=== PATIENT | female | born 1985 | race African-American/Black ===

== ENCOUNTER 2016-12-31 07:12 | Inpatient (IN) | payer OTHER ==
--- NOTE | 2016-12-22 09:39 | HPE ---
DATE OF SCHEDULED ADMISSION: 12/31/2016 She is booked for elective repeat section on 12/31/2016. This lady is a 31-year-old, 2, para 1, last menstrual period (LMP) 04/05/2016, estimated date of confinement (EDC) 01/10/2017. Her final date was 01/07/2017. She is booked at 39 weeks for a repeat section, which is 12/31/2016. Her risk factors are that she has had a prior section in 2007. She has a two-vessel cord at the present time, small for gestational age , having gone from the 26th percentile to the 18th percentile, and is being monitored for growth. She initially had a low-lying placenta over the uterine incision; however, that has resolved. PAST HISTORY: In 2007, at 41 weeks, section for breech presentation. ALLERGIES: She has no known allergies. She is taking no medications at the present time. PAST SURGICAL HISTORY: section and she has had abdominoplasty in August 2015. It is giving her some issues in regards to pain from stretching. HER LAB WORK: Is B positive, HIV negative, hepatitis negative, RPR negative. Rubella immune. Varicella immune. Pap normal. Urine negative. Gonorrhea and chlamydia are negative. 1-hour glucose early was 78. 28-week GTT was 109, and GBS is pending. Her blood pressure is 128/70, respirations are 18, pulse 78. Her symphysis fundus height is 35-36 cm. heart rate is 140, vertex presenting. The rest of the examination is unremarkable. She is normocephalic, atraumatic. Neck full range of motions. Pupils equal and reactive to light. Distal pulses are symmetric. No evidence of deep venous thrombosis (DVT), pulmonary embolism (PE), or superficial phlebitis. What is interesting is she has pedal edema from her ankles to her knees, pitting in all places. 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 Lungs are clear bilaterally to bases. No wheezes or rhonchi. No costovertebral angle (CVA) tenderness. Nontender abdomen. She has multiple scars from her abdominoplasty, section, periumbilical area, and all are keloided in. Symphysis fundus height is appropriate, and four quadrant bowel sounds are noted. She has no rashes, lesions, or pruritus. She does have some pedal edema, and she has dependent edema over the incisional scar. No arthralgia or myalgia. No complaints of cough, wheezes, shortness of breath, or dyspnea on exertion. No allergies. No chest pain. No bleeding. Neurologically complete. No incontinence, urgency, or frequency. No nausea, vomiting, diarrhea, or constipation. No diabetic issues. GYNECOLOGIC HISTORY: Is unremarkable. MEDICAL HISTORY: Is negative. SURGICAL HISTORY: Is section, abdominoplasty. FAMILY HISTORY: Is noncontributory. She does not smoke, drink, abuse drugs. She is , and she is an active duty soldier. We discussed the risks and benefits of repeat section, including hemorrhage, infection, perforation, , reoperation, remote blood transfusion, remote hysterectomy, remote laceration, remote intensive care admission for baby, especially with a baby who is a nsszy-ali-dxscxzqjfjz-age infant. Patient expressed understanding of risks and benefits, signed and witnessed the consent form. We are booked tentatively for 12/31/2016. This may be moved depending on growth scans. Presently, she has gone from 26th percentile to the 18th percentile and she has a followup repeat growth scan in 2 weeks' time. If the S/D ratio reverses or there is a change in the estimated weight being at the 3rd percentile or below, we will move up the date of the section. Patient expressed understanding of all these issues.
[~2016-12-31] VITALS: Ht 170.2 cm; Wt 103.7 kg
[~2016-12-31 07:12] MED LIST: PRE-TAB3 PO
[2016-12-31] MEDS ORDERED: AZITHROMYCIN INJ 500 MG, VIAL MATE ADAPTER 1 EACH in D5W 250 ML IV SCH (08:15)
[2016-12-31] MEDS ORDERED: LR 1,000 ML IV ONE (08:15)
[2016-12-31] MEDS ORDERED: BUPIVACAINE HCL 0.25% 30 ML VIAL SC ONE (08:15)
[2016-12-31] MEDS ORDERED: ACETAMINOPHEN 650 MG SUPP PR ONE (08:15)
[2016-12-31] MEDS ORDERED: MEASLES,MUMPS,RUBELLA VACCINE INJ (MMR-II) (90707) SC SCH (09:00)
[2016-12-31] MEDS ORDERED: RHOGAM 300 MCG (1500 IU) INJ (J2790) IM SCH (09:00)
[2016-12-31] MEDS: PRENATAL VITAMINS CHEWABLE TABLET PO SCH (09:00)
[2016-12-31] MEDS: DOCUSATE SODIUM 100 MG CAP PO SCH ×2 (09:00→21:00)
[2016-12-31] MEDS ORDERED: LR 1,000 ML IV SCH ×2 (09:15→12:00)
[2016-12-31] MEDS ORDERED: BICITRA 30ML SOLN UDC PO ONE (09:15)
[2016-12-31 09:30] LABS: MEAN CORPUSCULAR HEMOGLOBIN 27.9 pg (27.0-33.0); MEAN CORPUSCULAR HGB CONC 32.9 g/dl (32.0-36.5); MEAN CORPUSCULAR VOLUME 84.8 fl (80.0-96.0); RED CELL DISTRIBUTION WIDTH 13.8 % (11.5-14.5); WHITE BLOOD COUNT 7.4 K/mm3 (4.0-10.0)
[2016-12-31] MEDS ORDERED: OXYTOCIN INJ 10 UNITS/ML VIAL (J2590) As Ordered ONE (10:07)
[2016-12-31] MEDS ORDERED: MORPHINE PRES-FREE INJ 10 MG/10 ML VIAL (J2274) As Ordered ONE (10:07)
[2016-12-31] MEDS ORDERED: ONDANSETRON 4MG/2ML VIAL (J2405) IV PRN ×2 (10:18→12:00)
[2016-12-31] MEDS ORDERED: METOCLOPRAMIDE INJ 10MG/2ML VIAL (J2765) IV PRN ×3 (10:18→12:00)
[2016-12-31] MEDS ORDERED: NALOXONE INJ 0.4 MG/1 ML VIAL (J2310) IV PRN ×2 (10:18)
[2016-12-31] MEDS ORDERED: NALBUPHINE HCL 10 MG/ML AMP (J2300) IV PRN (10:18)
[2016-12-31] MEDS ORDERED: PHENYLephrine HCL 500 MCG/5 ML (100MCG/ML) SYRINGE (J2370) As Ordered ONE (10:33)
[2016-12-31] MEDS ORDERED: ePHEDrine SULFATE 25 MG/5 ML(5MG/ML) SYRINGE As Ordered ONE (10:33)
[2016-12-31] MEDS ORDERED: ONDANSETRON 4MG/2ML VIAL (J2405) As Ordered ONE (10:51)
[2016-12-31] MEDS ORDERED: KETOROLAC 60 MG/2 ML VIAL (J1885) As Ordered ONE (10:51)
[2016-12-31] MEDS ORDERED: OXYTOCIN DRIP 30 UNITS in APPROPRIATE DILUENT 1 EA IV SCH (12:00)
[2016-12-31] MEDS ORDERED: fentaNYL 100 MCG/2 ML INJECTION (J3010) IV PRN (12:00)
[2016-12-31] MEDS: LR 1,000 ML IV SCH ×2 (12:00→17:13)
[2016-12-31] MEDS ORDERED: PERCOCET 5MG/325MG TAB PO PRN ×3 (12:00)
[2016-12-31] MEDS ORDERED: OXYTOCIN 30 UNITS IN 0.9% NaCl 500ML IV BAG (J2590) As Ordered ONE (12:04)
[2016-12-31 13:45] VITALS: BP 119/60
[2016-12-31 14:15] VITALS: BP 120/58
[2016-12-31 15:15] VITALS: BP 125/62
[2016-12-31 16:15] VITALS: BP 110/56
[2016-12-31] MEDS: KETOROLAC 30 MG/ML VIAL (J1885) IV SCH ×2 (17:13→23:00)
[2016-12-31 18:00] VITALS: BP 118/57
--- NOTE | 2016-12-31 20:27 | RO ---
DATE OF PROCEDURE: 12/31/2016 PREPROCEDURE DIAGNOSIS: Prior , two-vessel cord, desired repeat . POSTPROCEDURE DIAGNOSIS: Prior , two-vessel cord, desired repeat . Severe adhesive disease. PROCEDURE: Elective repeat delivery. SURGEON: Dr. Hudson García RESEARCH AND DEVELOPMENT DIRECTOR: Dr. Irving Blevins ANESTHESIA: Spinal. ESTIMATED BLOOD LOSS: 550 mL. DRAINS: 50 mL of clear urine in the Georges catheter. FLUID REPLACEMENT: Equals 2000 mL of lactated Ringer's. PREOPERATIVE ANTIBIOTICS: 2 grams of Ancef IV. SPECIMENS: None. INDICATION: The patient desired repeat delivery as opposed to trial of labor. FINDINGS: Pfannenstiel skin incision, severe scar tissue throughout, female, 3230 grams, 7 pounds 2 ounces, clear fluid, scores 8 and 9, uterus closed in situ due to severe scar tissue findings. DESCRIPTION OF PROCEDURE: The patient was taken to the operating room after informed consent was obtained. She was 39 weeks and the plan was originally for Dr. Zazueta to do her surgery today. However, he is post call and the surgery was scheduled mistakenly for late morning as opposed to first thing in the morning. I knew the patient well and agreed to perform her surgery. The patient was placed in the dorsal supine position with a leftward tilt after a spinal anesthetic was obtained. heart tones were normal post spinal. She was then prepped and draped in the normal sterile fashion after Georges catheter and sequential compression devices (SCDs) were placed. The patient had undergone an abdominoplasty previously; therefore, it was difficult to find exactly where her pubic bone was due to the significant amount of swollen scar tissue in her skin. However, we were eventually able to do so and just underneath her abdominoplasty scar, parallel to the scar, a Pfannenstiel skin incision was performed, which was noted to be 1-2 cm above the edge of the symphysis pubis. This was carried down to the level of the fascia, which was nicked in the midline and extended bilaterally the extent of the skin incision. The fascial edges were tented up and the underlying rectus muscles were dissected off with Mayos and a scalpel. This was repeated inferiorly without difficulty. The rectus muscles were in the midline, and the peritoneum was eventually identified with success of spreading maneuvers with two Destiny clamps. We were able to identify the peritoneum and tent this up and enter it sharply. Digital exploration revealed that the uterus was adhered to the anterior abdominal wall on all sides and superiorly as well. We were able to sharply and bluntly dissect an adequate enough window over the anterior lower segment of the uterus to perform the patient's surgery. A bladder flap was not able to be created. However, we could see the bladder edge. Approximately 2 cm above the bladder edge, made a low transverse uterine incision, tented up the superior and inferior edges of this incision with Allis clamps and very carefully incised down to the amnion. The uterine incision was then stretched to adequacy and amniotomy revealed clear fluid. We then delivered the infant through the hysterotomy with flexed head and fundal pressure. There was no significant delay or difficult delivery of the head or anterior or posterior shoulder. The vigorous infant was noted to have a spontaneous cry and good tone. Cord was clamped times two and cut, and the was handed off to the waiting resuscitation team. With fundal massage, waited until the Pitocin was running full strength and the uterus began to contract down before delivering the placenta. The cord avulsed. It then delivered the placenta intact manually without difficulty. After clearing the uterus of all clots and debris with two dry sponges, we identified each edge of the hysterotomy, clamped each corner and anterior and posterior leaflet with Ring forceps. This was done because I was not able to deliver the uterus due to the aforementioned scar tissue. Then, with a running suture of locked #0 Vicryl, I closed the hysterotomy from left to right. Hemostasis was noted. I then reinforced this closure with a running suture of #0 Monocryl for imbrication purposes. Hemostasis was noted for several minutes. Irrigated this area to a small degree and ensured that hemostasis was, in fact, present from the uterine incision. I then closed the peritoneal edges from superior to inferior with #3-0 Vicryl. The fascia was closed from left to right with a running suture of #0 Vicryl without difficulty and the subcutaneous tissue was copiously irrigated, made to be hemostatic and then closed with a running #2-0 Vicryl. The skin was closed with a running #4-0 Monocryl subcuticular stitch from left to right. Steri-Strips were placed over the incision and a pressure dressing as well. I froglegged the patient and did a bimanual exam and found the uterus to be 4+ above the neoumbilicus but this will be normal for her as her umbilicus is fake from her prior abdominoplasty. The fundus was firm, and there was only a small amount of clots and debris in the vagina. The patient was then transferred to the post-anesthesia care unit (PACU) in stable condition. All counts were correct, including sponge, needle and instruments.
[2016-12-31 22:36] VITALS: BP 107/58
[2017-01-01] VITALS (8 sets, daily range): BP systolic 93–123; BP diastolic 50–72
[2017-01-01] MEDS: LR 1,000 ML IV SCH (04:00)
[2017-01-01] MEDS: KETOROLAC 30 MG/ML VIAL (J1885) IV SCH ×2 (05:45→11:07)
--- NOTE | 2017-01-01 06:41 | IPNPDOC ---
Text Note Date of Service The patient was seen on 01/01/17. NOTE POD1 prog note States feeling well, no complaints. No heavy VB. Pain controlled. Voiding, ambulatory. Bonding well and feeding well. UO adequate. VSSAF CTAB [employer] CDI, bandage removed, no strike thru Ut at U-2, firm Ext no CCE CBC pending this AM a/p: Doing well. Routine postop care. Sessions Kevon NICHOLS, I+O VSKevon I+O Laboratory Tests 12/31/16 08:49 Red Blood Count 3.89 L, Mean Corpuscular Volume 84.8, Mean Corpuscular Hemoglobin 27.9, Mean Corpuscular Hemoglobin Concent 32.9, Red Cell Distribution Width 13.8 Vital Signs Date Time Temp Pulse Resp B/P (MAP) Pulse Ox O2 Delivery O2 Flow Rate FiO2 01/01/17 06:31 97.7 70 18 93/50 (64) 01/01/17 02:35 98 Room Air SESSIONS,LUANN Roman MD Jan 01, 2017 06:41
[2017-01-01 07:41] LABS: MEAN CORPUSCULAR HEMOGLOBIN 28.3 pg (27.0-33.0); MEAN CORPUSCULAR HGB CONC 33.3 g/dl (32.0-36.5); MEAN CORPUSCULAR VOLUME 85.1 fl (80.0-96.0); RED CELL DISTRIBUTION WIDTH 13.7 % (11.5-14.5); WHITE BLOOD COUNT 8.2 K/mm3 (4.0-10.0)
[2017-01-01] MEDS: PRENATAL VITAMINS CHEWABLE TABLET PO SCH (08:36)
[2017-01-01] MEDS: DOCUSATE SODIUM 100 MG CAP PO SCH ×2 (08:36→21:00)
[2017-01-01] MEDS ORDERED: SLF 3 ML SYR IV PRN (11:30)
[2017-01-01] MEDS: SLF 3 ML SYR IV SCH ×2 (14:23→21:28)
[2017-01-01] MEDS: IBUPROFEN 800 MG TAB PO SCH (18:35)
[2017-01-02 02:00] VITALS: BP 118/71
[2017-01-02] MEDS: IBUPROFEN 800 MG TAB PO SCH ×2 (03:00→11:00)
[2017-01-02 06:00] VITALS: BP 137/66
[2017-01-02] MEDS ORDERED: medroxyPROGESTERone ACET IM SUSP 150 MG/ML VIAL (J1050) IM ONE (08:00)
[2017-01-02] MEDS: DOCUSATE SODIUM 100 MG CAP PO SCH (08:43)
[2017-01-02] MEDS: PRENATAL VITAMINS CHEWABLE TABLET PO SCH (08:53)
[2017-01-02] MEDS ORDERED: ADACEL/BOOSTRIX VACCINE (DIPHTH/PERTUSS/ACELL/TETANUS)0.5ML SYR (90715) IM ONE ×2 (09:00)
[2017-01-02] MEDS ORDERED: COLA100C5 PO (11:33)
[2017-01-02] MEDS ORDERED: MOTR200T44 PO (11:34)
[2017-01-02] MEDS ORDERED: OXYC1TAB23 PO (11:35)
== END 2017-01-02 14:00 | disposition home or self-care (01) | DRG 765 ==
LOC: M LDI 07:12 → M OBS 13:39
PROVIDERS: ADMIT Obstetrics & Gynecology; ATTEND Obstetrics & Gynecology
PROC: 10D00Z1 Extraction of Products of Conception, Low, Open Approach (ICD-10-PCS; principal; 2016-12-31 09:30)
DX: O34.211 Maternal care for low transverse scar from previous cesarean delivery (principal); O36.5930 Maternal care for other known or suspected poor fetal growth, third trimester, not applicable or unspecified; Z37.0 Single live birth; Z3A.39 39 weeks gestation of pregnancy; O69.5XX0 Labor and delivery complicated by vascular lesion of cord, not applicable or unspecified; N73.6 Female pelvic peritoneal adhesions (postinfective)

== ENCOUNTER 2018-11-16 20:52 | Emergency (ER) | payer OTHER ==
[~2018-11-16] VITALS: Ht 154.9 cm; Wt 77.3 kg
[~2018-11-16 20:52] MED LIST changes: +COLA100C5 PO; +MOTR200T44 PO; +OXYC1TAB23 PO
[2018-11-16] MEDS ORDERED: TRAZ-252 PO (20:56)
[2018-11-16 21:34] LABS: HEMATOCRIT 38.6 % (36.0-47.0); HEMOGLOBIN 12.8 g/dl (12.0-15.5); MEAN CORPUSCULAR HEMOGLOBIN 30.9 pg (27.0-33.0); MEAN CORPUSCULAR HGB CONC 33.2 g/dl (32.0-36.5); MEAN CORPUSCULAR VOLUME 93.2 fl (80.0-96.0); PLATELET COUNT, AUTOMATED 162 10^3/uL (150-450); RED BLOOD COUNT 4.14 10^6/uL (4.00-5.40); WHITE BLOOD COUNT 10.2 10^3/uL (4.0-10.0)
[2018-11-16 21:37] LABS: APPEARANCE, URINE CLEAR (CLEAR); BACTERIA, URINE AUTO NEGATIVE (NEGATIVE); BILIRUBIN, URINE AUTO NEGATIVE (NEGATIVE); BLOOD, URINE BLOOD NEGATIVE (NEGATIVE); COLOR, URINE YELLOW (YELLOW); GLUCOSE, URINE (UA) AUTO NEGATIVE (NEGATIVE); KETONE, URINE AUTO TRACE mg/dL (NEGATIVE); LEUKOCYTE ESTERASE, URINE AUTO NEGATIVE (NEGATIVE); NITRITE, URINE AUTO NEGATIVE (NEGATIVE); PROTEIN, URINE AUTO NEGATIVE (NEGATIVE); RBC, URINE AUTO 1 /HPF (0-3); SPECIFIC GRAVITY URINE AUTO 1.023 (1.002-1.035); SQUAMOUS EPITHELIAL CELL UR AU 3 /HPF (0-6); UROBILINOGEN, URINE AUTO 0.2 mg/dL (0.0-2.0); WBC, URINE AUTO 0 /HPF (0-3)
[2018-11-16 21:50] LABS: HCG, SERUM QUALITATIVE NEGATIVE (NEGATIVE)
[2018-11-16 21:52] LABS: ALBUMIN 3.4 GM/DL (3.2-5.2); ALT/SGPT 23 U/L (12-78); BILIRUBIN,TOTAL 0.2 MG/DL (0.2-1.0); BLOOD UREA NITROGEN 11 MG/DL (7-18); CALCIUM LEVEL 8.8 MG/DL (8.5-10.1); CARBON DIOXIDE LEVEL 28 MEQ/L (21-32); CHLORIDE LEVEL 109 MEQ/L (98-107); CREATININE FOR GFR 0.93 MG/DL (0.55-1.30); GLOMERULAR FILTRATION RATE > 60.0 (>60); GLUCOSE, FASTING 89 MG/DL (70-100); POTASSIUM SERUM 3.8 MEQ/L (3.5-5.1); SODIUM LEVEL 141 MEQ/L (136-145); TOTAL PROTEIN 7.1 GM/DL (6.4-8.2)
[2018-11-16 23:00] LABS: LIPASE 114 U/L (73-393)
[2018-11-17] MEDS ORDERED: ISOVUE-370 76% 100ML VIAL (Q9967) As Ordered ONE (00:10)
--- NOTE | 2018-11-17 00:51 | REPVR ---
EXAM: CT Abdomen and Pelvis With Contrast EXAM DATE/TIME: 11/16/2018 10:42 PM CLINICAL HISTORY: 33 years old, female; Abdominal pain; Localized; Right lower quadrant (rlq); Additional info: Rlq pain, bloating TECHNIQUE: Imaging protocol: Axial computed tomography images of the abdomen and pelvis with intravenous contrast. Coronal and sagittal reformatted images were created and reviewed. Radiation optimization: All CT scans at this facility use at least one of these dose optimization techniques: automated exposure control; mA and/or kV adjustment per patient size (includes targeted exams where dose is matched to clinical indication); or iterative reconstruction. Contrast material: ISO;Contrast volume: 100 ml;Contrast route: AC; COMPARISON: No relevant prior studies available. FINDINGS: Lungs: No suspicious mass or airspace process in the visualized lung bases. Liver: Liver appears normal with no focal abnormality. Gallbladder and bile ducts: Gallbladder is present and shows no evidence of gallstone. Pancreas: Pancreas appears normal. No focal mass or peripancreatic inflammation. Spleen: Spleen appears homogeneous without focal mass. Adrenals: Adrenal glands are normal in appearance. Kidneys and ureters: Kidneys appear normal, with no stone, solid mass or hydronephrosis. Stomach and bowel: No evidence of small bowel obstruction. Appendix: Normal caliber appendix is identified, with no adjacent inflammation. Intraperitoneal space: No pneumoperitoneum. Cystic left ovarian lesion measuring 5.5 cm is present with trace adjacent free fluid Vasculature: Main portal and splenic veins enhance normally. No aortic aneurysm. Lymph nodes: No enlarged lymph nodes. No enlarged lymph nodes. Bladder: Bladder appears normal. Bones/joints: Bony structures show no acute fracture or destructive process. Soft tissues: Prior lower abdominal anterior midline incision with no dehiscence or fluid collection. IMPRESSION: 1. No evidence of acute appendicitis, with normal air-filled appendix visualized. No specific explanation for right lower quadrant pain. 2. Left ovarian cyst measuring 5.5 cm Electronically signed by: Eros Roberts On 11/17/2018 00:51:02 AM
[2018-11-17 01:31] VITALS: BP 108/61
== END 2018-11-17 01:50 | disposition home or self-care (01) ==
LOC: M ED 20:52
DX: N83.202 Unspecified ovarian cyst, left side (principal)
CPT/HCPCS: 36415; 74177; 80053; 81001; 83690; 84703; 85027; 99284; Q9967